=== PATIENT | male | born 1970 | race Caucasian/White ===

== ENCOUNTER 2017-04-29 15:29 | Emergency (ER) | payer BC ==
[~2017-04-29] VITALS: Ht 185.4 cm; Wt 70.3 kg
--- NOTE | 2017-04-29 15:50 | PHYS DOC ---
Adult General Chief Complaint Chief Complaint: LACERATION/AVULSION [facility] HPI Patient is a 46 year old male presents to the emergency department stating that he was given some bushes when his head tremor which is gas cut him on his right leg just above the left leg which is just above the kneecap. Patient's immunizations are unclear as to how old his tetanus immunization was. Bleeding is currently controlled. Denies any numbness or tingling down to her lower extremity Review of Systems Review of Systems Constitutional: Denies fever or chills [] Eyes: Denies change in visual acuity, redness, or eye pain [] HENT: Denies nasal congestion or sore throat [] Respiratory: Denies cough or shortness of breath [] Cardiovascular: No additional information not addressed in HPI [] GI: Denies abdominal pain, nausea, vomiting, bloody stools or diarrhea [] : Denies dysuria or hematuria [] Musculoskeletal: Denies back pain or joint pain [] Integument: Denies rash or skin lesions. Laceration left leg Neurologic: Denies headache, focal weakness or sensory changes [] Endocrine: Denies polyuria or polydipsia [] Current Medications Current Medications Current Medications Medications (Trade) Dose Ordered Sig/Gwyn Start Time Stop Time Status Last Admin Dose Admin Diphtheria/ Tetanus/Acell Pertussis (Boostrix) 0.5 ml ONCE ONCE 04/29/17 16:00 04/29/17 16:01 DC 04/29/17 16:14 0.5 ML Lidocaine/Sodium Bicarbonate (Buffered Lidocaine 1%) 20 ml 1X ONCE 04/29/17 16:00 04/29/17 16:01 DC 04/29/17 16:00 20 ML Allergies Allergies Allergies Coded Allergies Type Severity Reaction Last Updated Verified No Known Drug Allergies 04/29/17 No Physical Exam Physical Exam Constitutional: Well developed, well nourished, no acute distress, non-toxic appearance. [] HENT: Normocephalic, atraumatic, bilateral external ears normal, oropharynx moist, no oral exudates, nose normal. [] Eyes: PERRLA, EOMI, conjunctiva normal, no discharge. [] Neck: Normal range of motion, no tenderness, supple, no stridor. [] Cardiovascular:Heart rate regular rhythm Lungs & Thorax: No respiratory distress noted Skin: Warm, dry, no erythema, no rash. Patient with 2 lacerations noted on the left leg. One is approximately 2 cm second is approximately 1.5 cm. Back: No tenderness Extremities: No tenderness, no cyanosis, no clubbing, ROM intact, no edema. [] Neurologic: Alert and oriented X 3, normal motor function, normal sensory function, no focal deficits noted. [] Psychologic: Affect normal, judgement normal, mood normal. [] Current Patient Data Vital Signs Vital Signs Date Time Temp Pulse Resp B/P (MAP) Pulse Ox O2 Delivery O2 Flow Rate FiO2 04/29/17 15:53 98.3 65 18 98 Room Air 98.3 EKG EKG [] Radiology/Procedures Radiology/Procedures [] Course & Med Decision Making Course & Med Decision Making Pertinent Labs and Imaging studies reviewed. (See chart for details) Patient with 2 lacerations noted the lateral laceration on the left leg was injected with approximately 4 mL of 1% buffered lidocaine, the medial laceration was injected with 4 mL of 1% buffered lidocaine as well. Both sites were irrigated with approximately 100 mL of normal saline. Sites were explored for foreign bodies with no foreign bodies noted. Site was cleaned with Betadine. The lateral laceration had 5 interrupted sutures 4-0 nylon placed. The medial laceration had 4 interrupted sutures 4-0 nylon. Patient was provided with discharge instructions, treatment regimens and follow-up recommendations. Patient was recommended to use ice packs on 20 minutes off 20 minutes several times a day elevation as much as possible. Also recommended Tylenol or ibuprofen for pain and discomfort. Recommended sutures out in the next 7-10 days. Signs and symptoms to return back to emergency department as been provided. [] Dragon Disclaimer Dragon Disclaimer This electronic medical record was generated, in whole or in part, using a voice recognition dictation system. Departure Departure Impression: Primary Impression: Laceration of left leg Disposition: 01 HOME, SELF-CARE Condition: STABLE Referrals: UNKNOWN PCP NAME (PCP) Patient Instructions: Laceration Care, Adult, [id number], Sutured Wound Care , [id number] Additional Instructions: Activity as tolerated. Tylenol or ibuprofen for pain and discomfort. Clean the site twice a day with soap and water and apply antibiotic ointment twice a day. Otherwise keep the area clean and dry. Watch for signs and symptoms of infection: Redness, warmth, tenderness or any yellow/greenish transient become from the site physician occur follow-up through primary care physician immediately. Return back to emergency department for signs symptoms of become worse. Sutures out in 7-10 days. Follow-up with your primary care physician at that time. BREE SIBLEY APRN Apr 29, 2017 15:50
[2017-04-29 15:53] VITALS: BP 153/67
[2017-04-29] MEDS ORDERED: DIPHTH,PERTUSS(ACELL),TET TOX 0.5 ML DISP.SYRIN. VAX IM ONE (16:00)
[2017-04-29] MEDS ORDERED: LIDOCAINE 1% / SOD BICARB 8.4% 20 ML VIAL. IJ ONE (16:00)
== END 2017-04-29 16:54 | disposition home or self-care (01) ==
LOC: ER 15:29
DX: S81.812A Laceration without foreign body, left lower leg, initial encounter (principal); W26.8XXA Contact with other sharp object(s), not elsewhere classified, initial encounter; Y93.89 Activity, other specified; Y92.89 Other specified places as the place of occurrence of the external cause; Y99.8 Other external cause status
CPT/HCPCS: 12002; 90471; 90715; 99283-25

== ENCOUNTER 2017-05-07 13:25 | Emergency (ER) | payer BC ==
[2017-05-07 13:35] VITALS: BP 129/71
--- NOTE | 2017-05-07 13:41 | PHYS DOC ---
Past Medical History Past Medical History: Seizure Past Surgical History: Other Additional Past Surgical Histo: left leg surgery Alcohol Use: None Drug Use: None Adult General Chief Complaint Chief Complaint: SUTURE/STAPLE REMOVAL [facility] Patient is a 46 year old male presents to the emergency department after having sutures placed on April 29. He had 9 total sutures placed on that date. Patient denies any fever, chills or any nausea vomiting denies any drainage or discharge coming from the area. He states that he did remove 1 suture on his own however part of it did not come out. Review of Systems Review of Systems Constitutional: Denies fever or chills [] Eyes: Denies change in visual acuity, redness, or eye pain [] HENT: Denies nasal congestion or sore throat [] Respiratory: Denies cough or shortness of breath [] Cardiovascular: No additional information not addressed in HPI [] GI: Denies abdominal pain, nausea, vomiting, bloody stools or diarrhea [] : Denies dysuria or hematuria [] Musculoskeletal: Denies back pain or joint pain [] Integument: Denies rash or skin lesions. Suture removal. Neurologic: Denies headache, focal weakness or sensory changes [] Endocrine: Denies polyuria or polydipsia [] Allergies Allergies Allergies Coded Allergies Type Severity Reaction Last Updated Verified No Known Drug Allergies 04/29/17 No Physical Exam Physical Exam Constitutional: Well developed, well nourished, no acute distress, non-toxic appearance. [] HENT: Normocephalic, atraumatic, bilateral external ears normal, oropharynx moist, no oral exudates, nose normal. [] Eyes: PERRLA, EOMI, conjunctiva normal, no discharge. [] Neck: Normal range of motion, no tenderness, supple, no stridor. [] Cardiovascular:Heart rate regular rhythm, no murmur [] Lungs & Thorax: Bilateral breath sounds clear to auscultation [] Skin: Warm, dry, no erythema, no rash. Sutures appear to be intact with edges approximated well. No drainage or discharge noted from the area. Back: No tenderness Extremities: No tenderness, no cyanosis, no clubbing, ROM intact, no edema. [] Neurologic: Alert and oriented X 3, normal motor function, normal sensory function, no focal deficits noted. [] Psychologic: Affect normal, judgement normal, mood normal. [] Current Patient Data Vital Signs Vital Signs Date Time Temp Pulse Resp B/P (MAP) Pulse Ox O2 Delivery O2 Flow Rate FiO2 05/07/17 13:35 98.2 51 16 99 Room Air 98.2 EKG EKG [] Radiology/Procedures Radiology/Procedures [] Course & Med Decision Making Course & Med Decision Making Pertinent Labs and Imaging studies reviewed. (See chart for details) 7 sutures removed. Patient had removed 1 suture 1 had come out on its own. Patient will be discharged home in stable condition with recommendations to follow-up the primary care physician as needed keep the area clean and dry. Clean the site twice a day with soap and water and apply antibiotic daily. Patient will be discharged home in stable condition with recommendations to follow-up as needed. All questions and concerns was answered patient's bedside. [] Dragon Disclaimer Dragon Disclaimer This electronic medical record was generated, in whole or in part, using a voice recognition dictation system. Departure Departure Impression: Primary Impression: Visit for suture removal Disposition: HOME, SELF-CARE Condition: STABLE Referrals: UNKNOWN PCP NAME (PCP) Patient Instructions: Suture Removal-Brief Additional Instructions: Activity as tolerated. Clean the site twice daily with soap and water. Apply antibiotic ointment to the area daily. Continue to watch for signs and symptoms of infection: Redness, warmth, tenderness or any yellow/greenish drainage of a come from the site. Follow-up through primary care physician as needed. Return back to emergency prior signs symptoms of become worse. BREE SIBLEY APRN May 07, 2017 13:41
== END 2017-05-07 13:55 | disposition home or self-care (01) ==
LOC: ER 13:25
DX: Z48.02 Encounter for removal of sutures (principal)
CPT/HCPCS: 99282